=== PATIENT | male | born 1960 | race African-American/Black ===

== ENCOUNTER 2018-01-14 03:43 | Emergency (ER) | payer MEDICAID ==
[~2018-01-14] VITALS: Ht 188 cm; Wt 86.4 kg
[2018-01-14] MEDS ORDERED: ONDANSETRON HCL 4MG/2ML INJ IV STA (04:51)
[2018-01-14] MEDS ORDERED: MORPHINE SULFATE 4 MG/ML CPJ (NOT FOR IM USE) IV STA (04:51)
[2018-01-14 05:49] LABS: BASOPHILS % 0.4 % (0.0-2.0); EOSINOPHILS % 0.2 % (0.0-5.0); HEMATOCRIT. 37.4 % (42.0-52.0); HEMOGLOBIN. 12.6 g/dL (14.0-18.0); LYMPHOCYTES % 36.3 % (20.0-50.0); MEAN CORPUSCULAR HEMOGLOBIN 31.5 pg (28.0-32.0); MEAN CORPUSCULAR VOLUME 93.5 fL (80.0-94.0); MEAN PLATELET VOLUME 8.1 fl (7.4-10.4); MONOCYTES % 9.9 % (2.0-8.0); NEUTROPHILS % 53.2 % (40.0-76.0); PLATELET 234 x1000/uL (130-400); RED CELL DISTRIBUTION WIDTH 14.6 % (11.6-14.6)
[2018-01-14 05:59] LABS: CHLORIDE 102 mEq/L (98-107)
[2018-01-14 06:24] LABS: PROTHROMBIN TIME 10.3 sec (9.1-11.1)
[2018-01-14] MEDS ORDERED: SODIUM CHLORIDE 0.9% 1,000 ML IV ONE (08:35)
[2018-01-14] MEDS ORDERED: KETOROLAC 30MG/ML VIAL IV ONE (08:45)
[2018-01-14] MEDS ORDERED: LORAZEPAM 2MG/ML CPJ IV ONE (08:45)
[2018-01-14 09:06] LABS: ETHANOL BLOOD 51 mg/dL
[2018-01-14 09:20] LABS: CREATINE KINASE 1575 IU/L (39-308)
[2018-01-14 13:33] VITALS: BP 118/69
== END 2018-01-14 13:58 | disposition home or self-care (01) ==
LOC: ER 03:43
DX: M79.10 Myalgia, unspecified site (principal); R25.2 Cramp and spasm; M62.82 Rhabdomyolysis; R10.9 Unspecified abdominal pain; I10 Essential (primary) hypertension; G40.909 Epilepsy, unspecified, not intractable, without status epilepticus; F10.10 Alcohol abuse, uncomplicated; Y90.2 Blood alcohol level of 40-59 mg/100 ml; Z98.890 Other specified postprocedural states
CPT/HCPCS: 36415; 74176; 80053; 82550; 83690; 84484; 85025; 85610; 96374; 96375; 99285; G0482; J1885; J2060; J2270; J2405; J7030

== ENCOUNTER 2020-12-14 16:04 | Emergency (ER) | payer MEDICAID ==
[~2020-12-14] VITALS: Ht 182.9 cm; Wt 81.0 kg
[2020-12-14] MEDS ORDERED: LEVETIRACETAM 1000MG PREMIX 100 ML IV ONE (16:30)
[2020-12-14 17:02] LABS: BASOPHILS % 0.6 % (0.0-2.0); EOSINOPHILS % 1.2 % (0.0-5.0); HEMATOCRIT. 36.6 % (42.0-52.0); HEMOGLOBIN. 12.3 g/dL (14.0-18.0); LYMPHOCYTES % 39.8 % (20.0-50.0); MEAN CORPUSCULAR HEMOGLOBIN 29.9 pg (28.0-32.0); MEAN CORPUSCULAR VOLUME 89.2 fL (80.0-94.0); MEAN PLATELET VOLUME 7.5 fl (7.4-10.4); MONOCYTES % 6.4 % (2.0-8.0); PLATELET 251 x1000/uL (130-400); RED CELL DISTRIBUTION WIDTH 15.7 % (11.6-14.6)
[2020-12-14 17:04] LABS: CHLORIDE 112 mEq/L (98-107)
[2020-12-14 17:08] LABS: ETHANOL BLOOD < 10 mg/dL
[2020-12-14] MEDS ORDERED: KEPP500 MT (21:34)
[2020-12-14 22:20] VITALS: BP 107/56
== END 2020-12-14 22:48 | disposition home or self-care (01) ==
LOC: ER 16:04
DX: R51.9 Headache, unspecified (principal); I10 Essential (primary) hypertension
CPT/HCPCS: 36415; 70450; 80053; 80320; 85025; 96365; 99285; J1953; G0480

== ENCOUNTER 2021-07-14 14:02 | Emergency (ER) | payer MEDICAID ==
[~2021-07-14] VITALS: Ht 172.7 cm; Wt 73.0 kg
[~2021-07-14 14:02] MED LIST: KEPP500 MT
[2021-07-14] MEDS ORDERED: SODIUM CHLORIDE 0.9% 1000ML BAG (SEPSIS BOLUS) IV ONE (14:45)
[2021-07-14 15:28] LABS: BASOPHILS % 0.3 % (0.0-2.0); EOSINOPHILS % 1.2 % (0.0-5.0); HEMATOCRIT. 36.7 % (42.0-52.0); HEMOGLOBIN. 11.9 g/dL (14.0-18.0); LYMPHOCYTES % 17.5 % (20.0-50.0); MEAN CORPUSCULAR HEMOGLOBIN 28.9 pg (28.0-32.0); MEAN CORPUSCULAR VOLUME 89.2 fL (80.0-94.0); MEAN PLATELET VOLUME 7.8 fl (7.4-10.4); MONOCYTES % 7.1 % (2.0-8.0); NEUTROPHILS % 73.9 % (40.0-76.0); PLATELET 225 x1000/uL (130-400); RED BLOOD CELL COUNT 4.11 mill/uL (4.7-6.1); RED CELL DISTRIBUTION WIDTH 15.9 % (11.6-14.6)
[2021-07-14 15:45] LABS: CHLORIDE 113 mEq/L (98-107)
[2021-07-14 18:25] LABS: CLARITY URINE CLEAR (CLEAR); COLOR URINE YELLOW (YELLOW); KETONES URINE TRACE (NEGATIVE); LEUKOCYTE ESTERASE URINE NEGATIVE (NEGATIVE); NITRITE URINE NEGATIVE (NEGATIVE); OCCULT BLOOD URINE NEGATIVE (NEGATIVE); PROTEIN URINE NEGATIVE (NEGATIVE); UROBILINOGEN URINE 0.2 E.U./dL (0.2-1.0)
[2021-07-14 19:52] VITALS: BP 116/62
[2021-07-15 13:38] LABS: *BARBITURATES SCREEN URINE NEGATIVE (NEGATIVE); *BENZODIAZEPINES SCREEN URINE NEGATIVE (NEGATIVE); *COCAINE SCREEN URINE NEGATIVE (NEGATIVE)
[2021-07-15 13:39] LABS: CANNABINOID URINE SCREEN PRESUMTIVE POSITIVE (NEGATIVE); METHADONE URINE SCREEN NEGATIVE (NEGATIVE); OPIATES URINE SCREEN NEGATIVE (NEGATIVE); PHENCYCLIDINE URINE SCREEN NEGATIVE (NEGATIVE)
[2021-07-15 13:40] LABS: *AMPHETAMINES SCREEN URINE NEGATIVE (NEGATIVE)
== END 2021-07-14 19:58 | disposition home or self-care (01) ==
LOC: ER 14:02 → EDBEDREQTM 19:25 → EDBEDREQ 19:25 → ER 19:58 → CANBEDREQ 07-15 00:26
DX: R55 Syncope and collapse (principal); I95.9 Hypotension, unspecified; I10 Essential (primary) hypertension; Z86.59 Personal history of other mental and behavioral disorders
CPT/HCPCS: 36415; 71045; 80053; 80305; 81003; 83605; 84484; 85025; 87040; 93005; 96360; 99285; J7030